=== PATIENT | female | born 1990 | race Caucasian/White ===

== ENCOUNTER 2016-10-11 00:32 | Emergency (ER) | payer MEDICARE | END 2016-10-11 01:55 | disposition home or self-care (01) | LOC: FER 00:32 | DX: Z48.01 Encounter for change or removal of surgical wound dressing (principal); F17.210 Nicotine dependence, cigarettes, uncomplicated; Z88.0 Allergy status to penicillin; Z88.5 Allergy status to narcotic agent; Z90.710 Acquired absence of both cervix and uterus | CPT/HCPCS: 99283 ==